=== PATIENT | female | born 1995 | race Caucasian/White ===

== ENCOUNTER 2017-03-24 22:22 | Emergency (ER) | payer SELFPAY ==
[2017-03-24] MEDS ORDERED: Sodium Chloride 0.9% 10 ML Syringe FLUSH PRN (22:49)
[2017-03-24] MEDS ORDERED: Sodium Chloride 0.9% 2.5 ML Syringe FLUSH PRN (22:49)
[2017-03-24] MEDS ORDERED: Ketorolac 30 MG/ML SDV IVPUSH ONE (22:51)
--- NOTE | 2017-03-24 22:56 | EDM.PDOC ---
ED HPI GENERAL MEDICAL PROBLEM - General Chief Complaint: General Stated Complaint: PT LT SIDE NUMB Time Seen by Provider: 03/24/17 22:34 - History of Present Illness INITIAL COMMENTS - FREE TEXT/NARRATIVE: HISTORY AND PHYSICAL: History of present illness: The patient is a 22-year-old female with no stated medical history who presents with complaints of onset of symptoms at 6 PM which include slight blurriness of her left eye and seeing some spots in the periphery associated with a right frontal headache. He said she was eating dinner and watching TV when this happened after having a completely normal day. She says that the right frontal headache persists and the vision still is little bit blurry but has improved. Then at approximately 9:30 PM, an hour and a half ago, she started feeling like the left side of her body is numb. She says it started in her feet and then went up her left leg to her trunk and her left upper extremity and onto her face. She has no weakness and no pain in the extremities or the body associated with the numbness. She's had no recent trauma to her head neck or back and has been eating and drinking normally. She says she's had some nasal congestion and cold symptoms but that has not been extreme. She's had no recent fevers. The patient says that the numbness sensation is not like when an extremity goes to sleep i.e. not pins and needles and there is no pain associated with that. She says that it has improved since she got here but is still present. She has no trouble using her extremities or ambulating. Patient says that her right side is completely asymptomatic. She has never had any symptoms like this in the past. Patient says she gets intermittent headaches but has never been formally diagnosed with migraines but she has a family history of migraines and she keeps calling the headache she is having now a migraine area did not take any medications for her headache prior to coming here. Patient has no shortness of breath or nausea and no vomiting. She has no chest pain or palpitations. Please note that the patient states she is supposed to wear glasses when she is driving or working at the computer for long periods of time was not wearing them this evening watching television. She says she needs to get a repeat eye exam as she is overdue. Review of systems: As per history of present illness and below otherwise all systems reviewed and negative. Past medical history: As per history of present illness and as reviewed below otherwise noncontributory. Surgical history: As per history of present illness and as reviewed below otherwise noncontributory. Social history: No reported history of drug or alcohol abuse. Family history: As per history of present illness and as reviewed below otherwise noncontributory. Physical exam: Gen.: Well-developed well-nourished female who is nontoxic and vital signs reviewed by me. Patient ambulated into the ED without distress or assistance and moves easily in the ED on my exam. HEENT: Atraumatic, normocephalic, pupils reactive, negative for conjunctival pallor or scleral icterus, mucous membranes moist, throat clear, neck supple, nontender, trachea midline. There is no cervical adenopathy or nuchal rigidity and no palpable tenderness to the scalp or facial areas. Lungs: Clear to auscultation, breath sounds equal bilaterally, chest nontender. Heart: S1S2, regular rate and rhythm no overt murmurs Abdomen: Soft, nondistended, nontender. Negative for masses or hepatosplenomegaly. Negative for costovertebral tenderness. Pelvis: Stable nontender. Genitourinary: Deferred. Rectal: Deferred. Extremities: Atraumatic, negative for cords or calf pain. Neurovascular unremarkable. Patient has full range of motion without any defects or deformities and there is no evidence of any soft tissue trauma Neuro: Awake, alert, oriented. Cranial nerves II through XII unremarkable. Cerebellum unremarkable. Motor unremarkable throughout. Exam nonfocal. Patient' s gait was intact in her strength occluding building serviceman strength upper body and lower extremity strength is all 5/5 bilaterally. Dorsi and plantar flexion is intact 5 /5 great toe. On gross sensory exam, interval touch, temperature and proprioception the patient does have diminished sensation on the entire left side including left upper and lower extremity as well as abdomen area. The left face appears to be excluded. Diagnostics: EKG visual acuity NIH stroke scale CT scan of the head CBC CMP INR troponin UA UDS UCG TSH Therapeutics: IV Toradol Visual acuity per nursing on the right side is 20/30 in the left side is 20/30 and bilaterally is 20/25. [id number]: Patient tells me that her symptoms of the numbness are improving and she now only has it from her knee down to her foot and toes on the left leg her left thigh hip trunk waist and chest wall are all back to normal and her entire left upper extremity is back to normal except for her hand. She says her headache is also improving coinciding with this sensory improvement. I discussed with her and her boyfriend at bedside all testing results and will consult neurology in [place] for assistance on if they feel the patient needs an emergent MRI tonight or can be admitted here observed and have MRI in the morning. 0006: Case was discussed with Dr. Arenas the neurologist on-call at [facility] in [place]. He feels that the patient should have an MRI this evening and if I cannot perform it here he would recommend that the patient go to their ER and get the MRI tonight. He agrees that this is likely a migraine as the patient's symptoms are improving progressively with her headache. Currently the patient now tells me that she only has the tingling in her left hand and the remainder the symptoms have resolved. He's agrees with me that if the patient will not go to [place] and have the MRI tonight that we could admit her here and have the MRI done first thing in the morning with neurology consult as indicated per the hospitalist. I have offered both of these options to the patient stressing the importance of the MRI to be performed as soon as possible. I stressed that having it done this evening would be the best medical advice but if she has absolutely against going to [place] I would admit her here to our hospitalist with MRI first thing in the morning. She and her boyfriend are having a discussion currently to decide the care plan. 0022: Patient has decided to drive by private car to [place] in [place] to have the MRI this evening. I discussed this case and the plan with Dr. Gregory in the ER who accepts the patient for transfer. I have cautioned the patient that she needs to leave this ER and go directly to [place] to have the MRI; she should not go home go directly to have this test. If the MRI is negative she will likely be discharged home and if it is positive she will be admitted there with neurology consult. I will also give her information about Dr. Manning said that if she is discharged she can follow up here. Patient has been offered EMS transfer and declines and will prefer to go by 5 car. Currently she is only having the numbness to her fingers of her left hand only and all other symptoms have resolved. In light of her improvement of symptoms and her stability I will allow her to be transferred by car as this is what she is most comfortable with as well. Impression: Paresthesia of left body with headache, resolving rule out migraine headache versus thalamic event Definitive disposition and diagnosis as appropriate pending reevaluation and review of above. head Pain Score (Numeric/FACES): 7 - Related Data Allergies Allergy/AdvReac Type Severity Reaction Status Date / Time No Known Allergies Allergy Verified 03/24/17 22:38 Home Meds: Home Meds Control 03/24/17 [History] Past Medical History - Past Health History Medical/Surgical History: Denies Medical/Surgical History Social & Family History - Family History Family Medical History: Noncontributory - Tobacco Use Smoking Status *Q: Current Every Day Smoker Years of Tobacco use: 1 Packs/Tins Daily: 1 - Recreational Drug Use Recreational Drug Use: No ED ROS GENERAL - Review of Systems Review Of Systems: ROS reveals no pertinent complaints other than HPI. ED EXAM, GENERAL - Physical Exam Exam: See Below (See dictation) Course - Vital Signs Last Recorded V/S: Last Vital Signs Temp 36.6 C 03/24/17 22:22 Pulse 81 03/24/17 23:42 Resp 15 03/24/17 23:42 BP 120/67 03/24/17 23:42 Pulse Ox 97 03/24/17 23:42 - Orders/Labs/Meds Orders: Active Orders 24 hr Category Date Time Status Cardiac Monitoring [RC] . DIRECTED Care 03/24/17 22:49 Active Communication Order [RC] STAT Care 03/24/17 22:37 Active Communication Order [RC] STAT Care 03/24/17 22:49 Active EKG Documentation Completion [RC] STAT Care 03/24/17 22:49 Active Pulse Oximetry [RC] ASDIRECTED Care 03/24/17 22:49 Active Head wo Cont [CT] Stat Exams 03/24/17 22:50 Taken Sodium Chloride 0.9% [Saline Flush] Med 03/24/17 22:49 Active 10 ml FLUSH ASDIRECTED PRN Sodium Chloride 0.9% [Saline Flush] Med 03/24/17 22:49 Active 2.5 ml FLUSH ASDIRECTED PRN Saline Lock Insert [OM.PC] Stat Oth 03/24/17 22:49 Ordered Medication Orders Sodium Chloride (Saline Flush) 10 ml FLUSH ASDIRECTED PRN PRN Reason: Keep Vein Open Last Admin: 03/24/17 23:00 Dose: 10 ml Sodium Chloride (Saline Flush) 2.5 ml FLUSH ASDIRECTED PRN PRN Reason: Keep Vein Open Last Admin: 03/24/17 23:01 Dose: 2.5 ml Labs: Laboratory Tests 03/24/17 03/24/17 03/24/17 Range/Units 22:50 22:50 22:50 WBC (4.0-11.0) K/uL RBC (4.30-5.90) M/uL Hgb (12.0-16.0) g/dL Hct (36.0-46.0) % MCV (80.0-98.0) fL MCH (27.0-32.0) pg MCHC (31.0-37.0) g/dL RDW Std Deviation (28.0-62.0) fl RDW Coeff of Elizabeth (11.0-15.0) % Plt Count (150-400) K/uL MPV (7.40-12.00) fL Neut % (Auto) (48.0-80.0) % Lymph % (Auto) (16.0-40.0) % [place] % (Auto) (0.0-15.0) % Eos % (Auto) (0.0-7.0) % Baso % (Auto) (0.0-1.5) % Neut # (Auto) (1.4-5.7) K/uL Lymph # (Auto) (0.6-2.4) K/uL [place] # (Auto) (0.0-0.8) K/uL Eos # (Auto) (0.0-0.7) K/uL Baso # (Auto) (0.0-0.1) K/uL Nucleated RBC % /100WBC Nucleated RBCs # K/uL INR Sodium (136-146) mmol/L Potassium (3.5-5.1) mmol/L Chloride (98-110) mmol/L Carbon Dioxide (21-31) mmol/L BUN (6.0-23.0) mg/dL Creatinine (0.6-1.5) mg/dL Est Cr Clr Drug Dosing mL/min Estimated GFR (MDRD) ml/min Glucose (60-110) mg/dL Calcium (8.8-10.8) mg/dL Total Bilirubin (0.1-1.5) mg/dL AST (5-40) IU/L ALT (8-54) IU/L Alkaline Phosphatase (40-150) Troponin I (0.0-0.29) NG/ML Total Protein (6.0-8.0) g/dL Albumin (3.5-5.0) g/dL Globulin (2.0-3.5) g/dL Albumin/Globulin Ratio (1.3-2.8) TSH 3rd Generation (0.47-5.0) uIU/mL Urine Color YELLOW Urine Appearance CLEAR Urine pH 6.5 (5.0-8.0) Ur Specific Sylva 1.010 (1.001-1.035) Urine Protein NEGATIVE (NEGATIVE) mg/dL Urine Glucose (UA) NEGATIVE (NEGATIVE) mg/dL Urine Ketones NEGATIVE (NEGATIVE) mg/dL Urine Occult Blood NEGATIVE (NEGATIVE) Urine Nitrite NEGATIVE (NEGATIVE) Urine Bilirubin NEGATIVE (NEGATIVE) Urine Urobilinogen 0.2 (<2.0) EU/dL Ur Leukocyte Esterase NEGATIVE (NEGATIVE) Urine RBC 0-1 (0-2/HPF) Urine WBC 0-1 (0-5/HPF) Ur Epithelial Cells FEW (NONE-FEW) Urine Bacteria FEW (NEGATIVE) Urine HCG, Qual NEGATIVE (NEGATIVE) Urine Opiates Screen NEGATIVE (NEGATIVE) Ur Oxycodone Screen NEGATIVE (NEGATIVE) Urine Methadone Screen NEGATIVE (NEGATIVE) Ur Barbiturates Screen NEGATIVE (NEGATIVE) Ur Phencyclidine Scrn NEGATIVE (NEGATIVE) Ur Amphetamine Screen NEGATIVE (NEGATIVE) U Methamphetamines Scrn NEGATIVE (NEGATIVE) U Benzodiazepines Scrn NEGATIVE (NEGATIVE) U Cocaine Metab Screen NEGATIVE (NEGATIVE) U Marijuana (THC) Screen NEGATIVE (NEGATIVE) 03/24/17 03/24/17 03/24/17 Range/Units 22:57 22:57 22:57 WBC 7.42 (4.0-11.0) K/uL RBC 4.45 (4.30-5.90) M/uL Hgb 13.5 (12.0-16.0) g/dL Hct 39.8 (36.0-46.0) % MCV 89.4 (80.0-98.0) fL MCH 30.3 (27.0-32.0) pg MCHC 33.9 (31.0-37.0) g/dL RDW Std Deviation 43.9 (28.0-62.0) fl RDW Coeff of Elizabeth 13 (11.0-15.0) % Plt Count 233 (150-400) K/uL MPV 10.70 (7.40-12.00) fL Neut % (Auto) 57.6 (48.0-80.0) % Lymph % (Auto) 32.2 (16.0-40.0) % [place] % (Auto) 8.6 (0.0-15.0) % Eos % (Auto) 1.2 (0.0-7.0) % Baso % (Auto) 0.4 (0.0-1.5) % Neut # (Auto) 4.3 (1.4-5.7) K/uL Lymph # (Auto) 2.4 (0.6-2.4) K/uL [place] # (Auto) 0.6 (0.0-0.8) K/uL Eos # (Auto) 0.1 (0.0-0.7) K/uL Baso # (Auto) 0.0 (0.0-0.1) K/uL Nucleated RBC % 0.0 /100WBC Nucleated RBCs # 0 K/uL INR 0.92 Sodium 140 (136-146) mmol/L Potassium 3.9 (3.5-5.1) mmol/L Chloride 108 (98-110) mmol/L Carbon Dioxide 23 (21-31) mmol/L BUN 10 (6.0-23.0) mg/dL Creatinine 0.9 (0.6-1.5) mg/dL Est Cr Clr Drug Dosing 78.86 mL/min Estimated GFR (MDRD) > 60.0 ml/min Glucose 103 (60-110) mg/dL Calcium 9.6 (8.8-10.8) mg/dL Total Bilirubin 0.2 (0.1-1.5) mg/dL AST 12 (5-40) IU/L ALT 10 (8-54) IU/L Alkaline Phosphatase 42 (40-150) Troponin I < 0.10 (0.0-0.29) NG/ML Total Protein 7.4 (6.0-8.0) g/dL Albumin 4.3 (3.5-5.0) g/dL Globulin 3.1 (2.0-3.5) g/dL Albumin/Globulin Ratio 1.4 (1.3-2.8) TSH 3rd Generation 1.97 (0.47-5.0) uIU/mL Urine Color Urine Appearance Urine pH (5.0-8.0) Ur Specific Sylva (1.001-1.035) Urine Protein (NEGATIVE) mg/dL Urine Glucose (UA) (NEGATIVE) mg/dL Urine Ketones (NEGATIVE) mg/dL Urine Occult Blood (NEGATIVE) Urine Nitrite (NEGATIVE) Urine Bilirubin (NEGATIVE) Urine Urobilinogen (<2.0) EU/dL Ur Leukocyte Esterase (NEGATIVE) Urine RBC (0-2/HPF) Urine WBC (0-5/HPF) Ur Epithelial Cells (NONE-FEW) Urine Bacteria (NEGATIVE) Urine HCG, Qual (NEGATIVE) Urine Opiates Screen (NEGATIVE) Ur Oxycodone Screen (NEGATIVE) Urine Methadone Screen (NEGATIVE) Ur Barbiturates Screen (NEGATIVE) Ur Phencyclidine Scrn (NEGATIVE) Ur Amphetamine Screen (NEGATIVE) U Methamphetamines Scrn (NEGATIVE) U Benzodiazepines Scrn (NEGATIVE) U Cocaine Metab Screen (NEGATIVE) U Marijuana (THC) Screen (NEGATIVE) Meds: Medications Generic Name Dose Route Start Last Admin Trade Name Freq PRN Reason Stop Dose Admin Sodium Chloride 10 ml 03/24/17 22:49 03/24/17 23:00 Saline Flush FLUSH 10 ml ASDIRECTED PRN Administration Keep Vein Open Sodium Chloride 2.5 ml 03/24/17 22:49 03/24/17 23:01 Saline Flush FLUSH 2.5 ml ASDIRECTED PRN Administration Keep Vein Open Discontinued Medications Generic Name Dose Route Start Last Admin Trade Name Freq PRN Reason Stop Dose Admin Ketorolac Tromethamine 30 mg 03/24/17 22:51 03/24/17 23:00 Toradol IVPUSH 03/24/17 22:52 30 mg ONETIME ONE Administration Departure - Departure Time of Disposition: 00:31 Disposition: DC/Tfer to Acute Hospital 02 Condition: Good Clinical Impression: Paresthesia Headache Qualifiers: Headache type: unspecified Headache chronicity pattern: acute headache Intractability: not intractable Qualified Code(s): R51 - Headache - Discharge Information Referrals: PCP,None [Primary Care Provider] - Forms: ED Department Discharge Additional Instructions: The following information is given to patients seen in the emergency department who are being discharged to home. This information is to outline your options for follow-up care. We provide all patients seen in our emergency department with a follow-up referral. The need for follow-up, as well as the timing and circumstances, are variable depending upon the specifics of your emergency department visit. If you don't have a primary care physician on staff, we will provide you with a referral. We always advise you to contact your personal physician following an emergency department visit to inform them of the circumstance of the visit and for follow-up with them and/or the need for any referrals to a consulting specialist. The emergency department will also refer you to a specialist when appropriate. This referral assures that you have the opportunity for followup care with a specialist. All of these measure are taken in an effort to provide you with optimal care, which includes your followup. Under all circumstances we always encourage you to contact your private physician who remains a resource for coordinating your care. When calling for followup care, please make the office aware that this follow-up is from your recent emergency room visit. If for any reason you are refused follow-up, please contact the [facility] emergency department at and ask to speak to the emergency department charge nurse. [facility] Specialty care-Neurology Professional [address], [address] [place] [address] Please go directly to [facility] in the emergency department to be seen by their physician and have an MRI of your brain. Poor outpatient follow -up please contact her neurologist Dr. Manning in the clinic for evaluation of ear headache syndrome and return to ER as needed and as discussed. - My Orders Last 24 Hours: My Active Orders 03/24/17 22:37 Communication Order [RC] STAT 03/24/17 22:49 Cardiac Monitoring [RC] . DIRECTED Communication Order [RC] STAT EKG Documentation Completion [RC] STAT Pulse Oximetry [RC] ASDIRECTED Sodium Chloride 0.9% [Saline Flush] 10 ml FLUSH ASDIRECTED PRN Sodium Chloride 0.9% [Saline Flush] 2.5 ml FLUSH ASDIRECTED PRN Saline Lock Insert [OM.PC] Stat 03/24/17 22:50 Head wo Cont [CT] Stat - Assessment/Plan Last 24 Hours: My Active Orders 03/24/17 22:37 Communication Order [RC] STAT 03/24/17 22:49 Cardiac Monitoring [RC] . DIRECTED Communication Order [RC] STAT EKG Documentation Completion [RC] STAT Pulse Oximetry [RC] ASDIRECTED Sodium Chloride 0.9% [Saline Flush] 10 ml FLUSH ASDIRECTED PRN Sodium Chloride 0.9% [Saline Flush] 2.5 ml FLUSH ASDIRECTED PRN Saline Lock Insert [OM.PC] Stat 03/24/17 22:50 Head wo Cont [CT] Stat
[2017-03-24 23:29] LABS: CHLORIDE,CL 108 mmol/L (98-110); SODIUM,NA 140 mmol/L (136-146)
--- NOTE | 2017-03-25 10:48 | CT ---
EXAM DATE: 03/24/17 PATIENT'S AGE: 22 Patient: SHELBIE LAMB Facility: [place], [place] Site . Site : 1995 Study: CT Head [id number] 11:48:52 PM Ordering Physician: Jeb Lua Final Report: INDICATION: Headache, Left sided numbness TECHNIQUE: CT Head without contrast. COMPARISON: None. FINDINGS: There is no sign of intracranial hemorrhage or mass effect. The duarte-white differentiation is preserved. No abnormal intra-axial or extra-axial fluid collection. No acute disease of the visualized paranasal sinuses and mastoid air cells. No fracture evident. No scalp hematoma/laceration. IMPRESSION: No acute intracranial process. Dictated by: Abel Meza MD @ 03/24/2017 23:56:13 (Electronic Signature) Report Signed by Proxy. [facility]ENTER[facility]
== END 2017-03-25 00:40 ==
LOC: MW.ED 22:22
DX: R51 Headache (principal); R20.2 Paresthesia of skin; F17.210 Nicotine dependence, cigarettes, uncomplicated
CPT/HCPCS: 36415; 70450; 80053; 80305; 81001; 81025; 84443; 84484; 85025; 85610; 93005; 96374; 99284; J1885